=== PATIENT | female | born 1980 | race Caucasian/White ===

== ENCOUNTER 2016-06-06 14:18 | Emergency (ER) | payer SELFPAY ==
[2016-06-06 14:39] VITALS: O2SAT 97
--- NOTE | 2016-06-06 14:53 | ED.PDOC ---
History of Present Illness - General Chief Complaint: ENT Problem Stated Complaint: sorethroat, fever Time Seen by Provider: 06/06/16 14:51 Source: patient Exam Limitations: no limitations - History of Present Illness Initial Comments: Ute Fahad 35 y/o female with achy throat yesterday came to er stating getting worse.Has body aches feels warm. Nochronic medical problem no illcontact. has nasal congestion. Timing/Duration: gradual, yesterday Severity: moderate EENT Location: throat Prearrival Treatment: no prearrival treatment Improving Factors: nothing Worsening Factors: nothing Associated Symptoms: sore throat Allergies/Adverse Reactions: Allergies NO KNOWN ALLERGY Allergy (Verified 06/06/16 14:39) Review of Systems - Review of Systems Constitutional: States: no symptoms reported EENTM: States: see HPI Respiratory: States: no symptoms reported Cardiology: States: no symptoms reported Gastrointestinal/Abdominal: States: no symptoms reported Genitourinary: States: no symptoms reported Musculoskeletal: States: no symptoms reported Skin: States: no symptoms reported Neurological: States: no symptoms reported Endocrine: States: no symptoms reported Hematologic/Lymphatic: States: no symptoms reported Past Medical History (General) - Patient Medical History Hx Seizures: No Hx Stroke: No Hx Dementia: No Hx Asthma: Yes Hx of COPD: No Hx Cardiac Disorders: No Hx Congestive Heart Failure: No Hx Pacemaker: No Hx Hypertension: No Hx Thyroid Disease: No Hx Diabetes: No Hx Gastroesophageal Reflux: No Hx Renal Disease: No Hx Cancer: No Hx of HIV: No Hx Hepatitis C: No Hx MRSA: No Surgical History: no surgical history - Vaccination History Hx Influenza Vaccination: Yes - Social History Hx Tobacco Use: No Hx Alcohol Use: No Hx Substance Use: No Hx Substance Use Treatment: No Hx Depression: No - Activities of Daily Living Hospice Agency (if applicable):: None - Female History Patient is a Female of Child Bearing Age (10 -59 yrs old): No Hx Last Menstrual Period: 05/23/16 - contraception Patient : No Family Medical History - Family History Sister Name: Erinn Age (years): 44 Living Status: Still Living Hx Family Asthma: No Hx Family Congestive Heart Failure: No Hx Family Hypertension: Yes Age of Onset (years of age): 44 Hx Family Stroke: No Hx Cardiac Disease: No Hx Family Diabetes: Yes Age of Onset (years of age): 44 Hx Family Cancer: No Brother Name: Roney Age (years): 41 Living Status: Still Living Hx Family Asthma: No Hx Family Congestive Heart Failure: No Hx Family Hypertension: Yes Age of Onset (years of age): 36 Hx Family Stroke: No Hx Cardiac Disease: No Hx Family Diabetes: Yes Age of Onset (years of age): 34 Hx Family Cancer: No Mother Name: Anna Age (years): 63 Living Status: Still Living Hx Family Asthma: No Hx Family Congestive Heart Failure: No Hx Family Hypertension: Yes Hx Family Stroke: No Hx Cardiac Disease: No Hx Family Diabetes: No Hx Family Cancer: No Father Name: Nick Age (years): 70 Living Status: Still Living Hx Family Asthma: Yes Age of Onset (years of age): 10 Hx Family Congestive Heart Failure: Yes Age of Onset (years of age): 69 Hx Family Hypertension: Yes Age of Onset (years of age): 40 Hx Family Stroke: No Hx Cardiac Disease: Yes Age of Onset (years of age): 40 Hx Family Diabetes: No Hx Family Cancer: No Grandparents Name: George(pt's paternal grandmother) Living Status: Age at (years of age): 56 Cause of : uterine cancer Hx Family Asthma: Yes Hx Family Cancer: Yes Age of Onset (years of age): 55 Physical Exam - Physical Exam General Appearance: Alert, No apparent distress Eye Exam: bilateral normal Ear Exam: bilateral ear: auricle normal, canal normal, TM normal Nasal Exam: normal inspection, discharge Throat Exam: normal mouth inspection, pharynx tenderness - and erythema Neck: non-tender, full range of motion, supple, normal inspection Cardiovascular/Respiratory: regular rate, rhythm, no M/R/G, normal peripheral pulses, no JVD, normal breath sounds Neurologic: no motor/sensory deficits, alert Progress - Results/Orders Results/Orders: rapid strep test negative Departure - Departure Clinical Impression: Sore throat (viral) Time of Disposition: 16:09 Disposition: Discharge to Home or Self Care Condition: Good Departure Forms: ED Discharge - Pt. Copy, Patient Portal Self Enrollment Instructions: DI for Viral Pharyngitis Referrals: Merrick Raines MD [Primary Care Provider] - 1-2 Weeks Additional Instructions: MOTRIN (OTC) #3 tablets 3 x a day for achy throat
[2016-06-06 16:28] VITALS: BP 136/85; TEMP 97.8
== END 2016-06-06 16:28 | disposition home or self-care (01) ==
LOC: ER 14:18
DX: J02.9 Acute pharyngitis, unspecified (principal)